=== PATIENT | male | born 1945 | race Caucasian/White ===

== ENCOUNTER → 2023-11-16 | Outpatient (CLI) | payer MEDICARE | LOC: M PLARAD 12:20 | PROVIDERS: ATTEND Physician Assistant | DX: C20 Malignant neoplasm of rectum (principal) | CPT/HCPCS: 78815; A9552 ==

== ENCOUNTER → 2024-08-29 | Outpatient (CLI) | payer MEDICARE, OTHER ==
[~2024-08-29] MED LIST: ALBU8.5H INH; BETA5CR TOP; ESOM40CA35 PO; FAMO20TA5 PO; HYDR-3363 PO; ISOVUE-370 76% 100ML VIAL As Ordered ONE; LEVO25TA5 PO; PHOS1TAB3 PO; TREL1AER PO
== END ==
LOC: M RAD 09:21
PROVIDERS: ATTEND Internal Medicine Medical Oncology
DX: C20 Malignant neoplasm of rectum (principal)
CPT/HCPCS: 71260; 74177; Q9967

== ENCOUNTER → 2024-09-19 | Outpatient (CLI) | payer MEDICARE, OTHER ==
[~2024-09-19] MED LIST changes: -ISOVUE-370 76% 100ML VIAL As Ordered ONE
== END ==
LOC: M PLARAD 12:57
PROVIDERS: ATTEND Nurse Practitioner Women's Health
DX: C20 Malignant neoplasm of rectum (principal)
CPT/HCPCS: 78815; A9552

== ENCOUNTER → 2024-12-27 | Outpatient (CLI) | payer MEDICARE, OTHER ==
[~2024-12-27] MED LIST changes: +CETI-24 PO; +TERI2.4P
== END ==
LOC: M PLARAD 07:48
PROVIDERS: ATTEND Nurse Practitioner Women's Health
DX: C20 Malignant neoplasm of rectum (principal)
CPT/HCPCS: 78815; A9552

== ENCOUNTER → 2025-07-12 | Outpatient (CLI) | payer MEDICARE, OTHER ==
[~2025-07-12] MED LIST changes: +ISOVUE-370 76% 100 ML VIAL As Ordered ONE; +POTA50TAB PO; -TERI2.4P; +TERI2.4P TD
== END ==
LOC: M RAD 15:16
DX: C20 Malignant neoplasm of rectum (principal); K57.90 Diverticulosis of intestine, part unspecified, without perforation or abscess without bleeding; K42.9 Umbilical hernia without obstruction or gangrene; K40.90 Unilateral inguinal hernia, without obstruction or gangrene, not specified as recurrent; I70.0 Atherosclerosis of aorta; R18.8 Other ascites; J43.2 Centrilobular emphysema; R59.0 Localized enlarged lymph nodes; K44.9 Diaphragmatic hernia without obstruction or gangrene
CPT/HCPCS: 71260; 74177; Q9967

== ENCOUNTER → 2025-08-21 | Outpatient (CLI) | payer MEDICARE, OTHER ==
[~2025-08-21] MED LIST changes: -ISOVUE-370 76% 100 ML VIAL As Ordered ONE
== END ==
LOC: M PLARAD 11:23
DX: C20 Malignant neoplasm of rectum (principal)
CPT/HCPCS: 78815; A9552